=== PATIENT | female | born 1955 | race Caucasian/White ===

== ENCOUNTER → 2017-03-24 | Outpatient (CLI) | payer OTHER ==
--- NOTE | 2017-03-24 10:57 | RADRPT ---
PROCEDURE: XR Pelvis and right Hip. CLINICAL INDICATION: Pain TECHNIQUE: AP view of the pelvis and frog-leg lateral view of the right hip are available for revi ew. COMPARISON: 04/06/2010 FINDINGS: Left hip total arthroplasty is in place unchanged. The right hip demonstrates mild osteoarthritic na rrowing without evidence of acute fracture, dislocation osteolytic lesion.. There is no evidence of hardware failure.. No radiopaque foreign body is identified. The osseous mineralization is normal. The sacroiliac joints, as visualized, are grossly unremarkable. Pubic symphysis and sacroiliac join ts are intact. . IMPRESSION: Status post left hip arthroplasty. Mild osteoarthritis of the right hip. RPTAT: QQ .Georges Elmore MD, MD Date Time Electronically viewed and signed by .Georges Elmore MD, on 03/24/2017 10:57 .L/
--- NOTE | 2017-03-25 02:58 | HKNOTE ---
DATE OF SERVICE: 03/24/2017 MAIN COMPLAINT: Pain in the "right hip and back." HISTORY OF MAIN COMPLAINT: The patient is a 62-year-old female who is well known to me. She underw ent a left hip replacement performed by me in 2009. The surgery was uneventful, and she made an exc ellent recovery. The left hip has been free of symptoms since that time. She is currently seeing me for pain in the right hip. The patient states that she and her w ent on a road trip to [facility] the last 2 weeks of January. She is not sure why but since that time she has had pain in her right hip. There is no history of injury on the trip, and she di d not do particularly heavy lifting. She is under the care of Dr. Quinn, a pain specialist in [place], who gives her various nerve block s and has given her prescriptions for Percocet and gabapentin. She is concerned that she may be bec oming addicted to the Percocet. The patient was seen by Dr. Quinn who ordered an MRI [facility]. She decided to come and see me of her own volition for another opinion. The pain is described as being moderate. The pain is worse in the morning. It seems to ease up whe n she is able to "go for a walk." She does not have any rest pain. She has had to increase the dos e of her pain medications. The patient has had multiple lumbar epidural cortisone injections and radiofrequency ablations. She has no numbness or tingling in her legs. On a level surface, she can walk 2 miles at a time withou t stopping. She does not use a walking aid. She limps most of the time. She feels "a clicking sensation" in her right hip almost with every step. She gets occasional achin g down the posterior aspect of the right thigh, never reaching as far as the knee. (Note that her l ast lumbar MRI scan was "several years ago"). PAST MEDICAL HISTORY: Skin cancers. PAST SURGICAL HISTORY: 1. Tonsillectomy. 2. Tubal ligation. 3. Hysterectomy. 4. Hip replacement. MEDICATIONS: 1. Lipitor. 2. Percocet. 3. Omeprazole. 4. Gabapentin. 5. Diclofenac. 6. Multivitamins. 7. Move Free. ALLERGIES: CODEINE CAUSES NAUSEA. FAMILY HISTORY: Noncontributory. SYSTEMS REVIEW: Not completed by the patient. PHYSICAL EXAMINATION GENERAL: The patient is a fit-looking but overweight 62-year-old female. VITAL SIGNS: Height 5 feet 4 inches, weight 190 pounds. Blood pressure 125/70, temperature 98.8. GAIT: The patient's gait is somewhat antalgic. She walks without a walking aid. BACK: Dynamic pain assessment reveals a pain free range of motion in flexion, lateral bending, and rotation. Extension reproduces pain in the lower back and bilateral buttocks. Inspection of the sp ine reveals no list. There is no lumbar paraspinal muscle spasm. The pelvis is level. Facet stress t est is negative bilaterally. Palpation of the spine demonstrates no tenderness of the spinous proces ses, facet joints, sacroiliac joint, sciatic notch, or posterior thigh. NEUROLOGIC: Motor examination reveals no muscle deficit in the lower extremities. Deep tendon refle xes in the lower extremities: Right knee jerk plus, left knee jerk plus, right ankle jerk plus, lef t ankle jerk plus. Straight leg raising is negative bilaterally at 80 degrees. Lasegue and AYSE te sts are negative. RIGHT HIP: A full passive range of motion without pain. Severe tenderness over the right trochante lilly bursa. LEFT KNEE: The left knee shows normal alignment. Active and passive extension is 0 degrees. Active and passive flexion is 135 degrees. The medial and lateral collateral ligaments and cruciate ligamen ts are intact. Rob test is negative. There is no effusion, tenderness, scarring, crepitus, or cy sts. The patella tracks normally. There is no tenderness on the articular surface of the patella or in the patellar groove. The Q angle is normal. RIGHT KNEE: The right knee shows normal alignment. Active and passive extension is 0 degrees. Activ e and passive flexion is 135 degrees. The medial and lateral collateral ligaments and cruciate ligam ents are intact. Rob test is negative. There is no effusion, tenderness, scarring, crepitus, or cysts. The patella tracks normally. There is no tenderness on the articular surface of the patella o r in the patellar groove. The Q angle is normal. IMAGING: Plain x-rays of the pelvis and right and left hip obtained today at the [facility] and [facility] were reviewed. The left hip shows a hip replacement. All components are well aligned a nd well attached to the bone, not the slightest suggestion of loosening or any other problem. MRI scan of the right hip obtained on 02/18/[address] Braden as showing "high-grade p artial-thickness tearing of the gluteal tendon at its attachment upon the greater tuberosity g luteal tendonitis. degenerative tearing of much of the right hip labrum. No significant oste oarthritis. No avascular necrosis. DIAGNOSES: 1. Trochanteric bursitis of the right hip. 2. Possible lumbar radiculopathy. MANAGEMENT: 1. Under sterile conditions, I gave injection of 2 mL of Kenalog and Xylocaine into the right troch anteric bursa. 2. She is being referred for a new MRI scan of the lumbar spine. She will be called with the resul ts of the scan. Further treatment will depend heavily upon her response to the cortisone injection as well as to the findings on the MRI. Dictated By: GURJIT HAYWARD/DAMIAN Conf#: [id number] DID#: [id number]
== END | disposition home or self-care (01) ==
LOC: HKI 10:39
DX: M70.61 Trochanteric bursitis, right hip (principal); M54.5 Low back pain; Z96.642 Presence of left artificial hip joint; Z90.710 Acquired absence of both cervix and uterus
CPT/HCPCS: 20610; 73502; G0463

== ENCOUNTER 2018-08-29 05:21 | Inpatient (IN) | payer OTHER ==
[2018-08-25 10:29] VITALS: Ht 162.6 cm; Wt 72.0 kg
[~2018-08-29] VITALS: Ht 162.6 cm; Wt 72.0 kg
[2018-08-29] VITALS (25 sets, daily range): BP systolic 112–138; BP diastolic 58–92; PULSE 66–108; RESP 14–31
[2018-08-29] MEDS ORDERED: SIMV80TA18 PO (05:44)
[2018-08-29] MEDS ORDERED: OXYC-279 PO (05:44)
[2018-08-29] MEDS ORDERED: GABA300C16 PO (05:46)
[2018-08-29] MEDS ORDERED: OMEP20CA16 PO (05:48)
[2018-08-29] MEDS ORDERED: GELATIN SIZE 100 SPONGE ONE (06:46)
[2018-08-29] MEDS ORDERED: BUPIVACAINE 0.5%/EPI (SDV) 30 ML INJ ONE (06:46)
[2018-08-29] MEDS ORDERED: CEFAZOLIN 1 GM INJ ONE ×2 (06:46→06:58)
[2018-08-29] MEDS ORDERED: SURGIFOAM POWDER 1 GM KIT ONE ×2 (06:46→09:33)
[2018-08-29] MEDS ORDERED: THROMBIN 5000 UNIT VIAL ONE ×2 (06:46→06:50)
--- NOTE | 2018-08-29 06:49 | PREAC ---
Date/Time of Note Date/Time of Note DATE: 08/29/18 TIME: 06:48 Anesthesia Eval and Record Evaluation Time Pre-Procedure Interview DATE: 08/29/18 TIME: 06:48 Age 63 Sex female NPO: 8 hrs Preoperative diagnosis L4 5 spinal stenosis Planned procedure decompression, instrumented fusion graft Past Medical History Past Medical History: Includes Cardio: Dyslipidemia Surgery & Anesthesia Issues Hx of PONV Meds Anticoagulation: No Beta Salvatore within 24 hr: No Reason Beta Salvatore not given: Pt. not on B-Salvatore Reported Medications Omeprazole* (Omeprazole*) 20 Mg Capsule.dr, 20 MG PO DAILY, #30 CAP 08/29/18 Gabapentin* (Gabapentin*) 300 Mg Capsule, 300 MG PO HS, #60 CAP 08/29/18 Simvastatin* (Simvastatin*) 80 Mg Tablet, 40 MG PO QHS, #30 TAB 08/29/18 Oxycodone HCl/Acetaminophen (Percocet 5-325 mg Tablet) 1 Each Tablet, 1 EACH PO Q4 PRN for PAIN, TAB 08/29/18 Current Medications Cefazolin Sodium/ Dextrose 50 ml @ 100 mls/hr PRE-OP ONCE IVPB ; Start 08/29/18 at 07:00; Stop 08/29/18 at 07:29 Lactated Ringer's 1,000 ml @ 0 mls/hr Q0M IV* Last administered on 08/29/18at 06:16; Admin Dose 30 MLS/HR; Start 08/29/18 at 07:00; Stop 08/29/18 at 16:00 Meds reviewed: Yes Allergies Coded Allergies: acetaminophen (Verified Adverse Reaction, Unknown, NAUSEA, 08/29/18) codeine (Verified Adverse Reaction, Unknown, NAUSEA, 08/29/18) hydrocodone (Verified Adverse Reaction, Unknown, NAUSEA, 08/29/18) Allergies Reviewed: Yes Labs/Studies Labs Reviewed: Reviewed by anesthesiologist test: N/A Studies: ECG (nl) Pre-procedure Exam Last vitals Vital Signs Date Temp Pulse Resp B/P (MAP) Pulse Ox O2 O2 Flow FiO2 Time Delivery Rate 08/29/18 98.5 66 18 123/74 98 Room Air 06:17 (90) Airway: Adequate mouth opening Mallampati: Mallampati I Teeth: Normal Lung: Normal Heart: Normal ASA Physical Status ASA physical status: 2 Emergency: None Planned Anesthetic General/MAC: ETT Planned Pain Management Parenteral pain med Pre-operative Attestations Prior to commencing anesthesia and surgery, the patient was re-evaluated, there was verification of: *The patient's identity *The results of appropriate recent lab work and preoperative vital signs *The above evaluation not changing prior to induction *Anesthetic plan, risk benefits, alternative and complications discussed with patient/family; questions answered; patient/family understands, accepts and wishes to proceed. ROGERS NUNEZ MD Aug 29, 2018 06:49
[2018-08-29] MEDS ORDERED: CA CHLORIDE (GM) 10% 10 ML INJ ONE (06:51)
[2018-08-29] MEDS ORDERED: HEPARIN 1000 UNITS/ML 10 ML INJ ONE ×2 (06:51→06:57)
[2018-08-29] MEDS ORDERED: METOCLOPRAMIDE 10 MG INJ ONE (06:58)
[2018-08-29] MEDS ORDERED: ONDANSETRON 4 MG INJ ONE (06:58)
[2018-08-29] MEDS ORDERED: SUCCINYLCHOLINE CHLORIDE 100 MG/5 ML SYG IV ONE (06:58)
[2018-08-29] MEDS ORDERED: PROPOFOL 20 ML ONE (06:58)
[2018-08-29] MEDS ORDERED: MIDAZOLAM 1 MG/ML 2 ML INJ ONE (06:58)
[2018-08-29] MEDS ORDERED: ROCURONIUM 50 MG INJ ONE ×2 (06:58→07:00)
[2018-08-29] MEDS ORDERED: PROPOFOL 200 MG INJ ONE (07:00)
[2018-08-29] MEDS ORDERED: LACTATED RINGER'S 1,000 ML IV* SCH (07:00)
[2018-08-29] MEDS ORDERED: CEFAZOLIN 2 GM/50 ML (PMX) 50 ML IVPB ONE (07:00)
[2018-08-29] MEDS ORDERED: EPHEDrine SULFATE 50 MG/5 ML SYG ONE (07:00)
--- NOTE | 2018-08-29 07:02 | HPN ---
Date/Time of Note Date/Time of Note DATE: 08/29/18 TIME: 07:02 Interval H&P Admission Note Pt. seen H&P reviewed: No system changes ALAN GUZMÁN MD Aug 29, 2018 07:02
[2018-08-29] MEDS ORDERED: HYDROmorphONE 2 MG/ML SYG ONE (07:19)
[2018-08-29] MEDS ORDERED: LABETALOL HCL 20MG INJ IV PRN (07:30)
[2018-08-29] MEDS ORDERED: DIPHENHYDRAMINE 50 MG INJ IV PRN ×2 (07:30→11:00)
[2018-08-29] MEDS ORDERED: ONDANSETRON 4 MG INJ IV PRN ×2 (07:30→11:00)
[2018-08-29] MEDS ORDERED: MEPERIDINE 25 MG INJ IV PRN (07:30)
[2018-08-29] MEDS ORDERED: hydrALAzine 20 MG INJ IV PRN (07:30)
[2018-08-29] MEDS ORDERED: HYDROmorphONE 1 MG/5 ML IV SYRINGE IV PRN ×3 (07:30)
[2018-08-29] MEDS ORDERED: HYDROmorphONE 0.5 MG/0.5 ML SYG IV PRN (09:00)
[2018-08-29] MEDS ORDERED: NALOXONE (0.4 MG/ML) INJ IV PRN (11:00)
[2018-08-29] MEDS ORDERED: CEPASTAT LOZENGE MT PRN (11:00)
[2018-08-29] MEDS ORDERED: BISACODYL 10 MG SUPP PR PRN (11:00)
[2018-08-29] MEDS: D5W-0.45 NACL + KCL 20 MEQ 1,000 ML IV SCH ×2 (11:00→20:08)
[2018-08-29] MEDS ORDERED: ACETAMINOPHEN 325 MG TAB PO PRN (11:00)
[2018-08-29] MEDS ORDERED: DIPHENHYDRAMINE 25 MG CAP PO PRN (11:00)
[2018-08-29] MEDS ORDERED: AL HYDROX/MG HYDROX/SIMETH 30 ML CUP PO PRN (11:00)
--- NOTE | 2018-08-29 11:17 | SIPON ---
Date/Time of Note Date/Time of Note DATE: 08/29/18 TIME: 11:16 Operative Report Preoperative Diagnosis L4-5 spondylolisthesis Postoperative Diagnosis L4-5 spondylolisthesis Operation/Procedure Performed L4-5 decompression and instrumented fusion Surgeon see signature line operator assistant i cementing Kylee Donohue Anesthesia: general Estimated blood loss: other Transfusion Required none Specimen L4-5 disc and bone Grafts/Implants Cage and screws Complications none ALAN GUZMÁN MD Aug 29, 2018 11:17
[2018-08-29] MEDS: HYDROmorphONE 0.2 MG/ML PCA IV SCH ×2 (12:06→18:32)
--- NOTE | 2018-08-29 12:09 | OPR ---
DATE OF OPERATION: 08/29/2018 PREOPERATIVE DIAGNOSES: L4-5 grade 1-2 unstable degenerative spondylolisthesis with stenosis, radiculopathy and neurogenic claudication and sagittal imbalance. POSTOPERATIVE DIAGNOSES: L4-5 grade 1-2 unstable degenerative spondylolisthesis with stenosis, radiculopathy and neurogenic claudication and sagittal imbalance. PROCEDURE: 1. Central decompressive laminectomy at L4-5 with decompression of L4 and L5 nerve roots for stenosis. 2. Tomas-Fishman bilateral osteotomy at L4-5. 3. Placement of intervertebral biomechanical device bilaterally at L4-5. 4. Posterolateral fusion at L4-5. 5. Pedicle screw placement at L4 and L5 bilaterally. 6. Use of allograft. 7. Use of autograft. 8. Intraoperative neuromonitoring. 9. Use of operative microscope. 10. Use of C-arm fluoroscopy with interpretation without radiologist present. SHEET PILE HAMMER OPERATOR: MARIA GUADALUPE Martin. NEED FOR MANAGER SKILLED: During this spinal surgical procedure, my anesthetic assistant was used to retract and protect the spinal nerves and dural sac. My anesthetic assistant also employed the suction catheters to evacuate blood from the surgical field to improve visualization of the neural structures. The anesthetic assistant was medically necessary to facilitate the completion of the surgery in a safe and expeditious manner. State of [place] regulations, as well as hospital bylaws, preclude the use of non-licensed health care personnel, such as operating room technicians, to perform these functions. IMPLANTS: 1. Neurostructure Palladian pedicle screws 6.5 x 40 mm, at L4 bilaterally, and 7.5 x 40 mm at L5 bilaterally. 2. NEXXT matrix 9 mm height by 10 x 30 mm titanium cage x2 at L4-L5. 3. Biosphere. FINDINGS: Neuromonitoring at the start of the case revealed left L4, L5, and right L5 amplitude down 40%. At the end of the case, nerve signals returned to normal. The patient had severe stenosis at L4-L5 with unstable degenerative spondylolisthesis. ESTIMATED BLOOD LOSS: 300 mL. DRAINS: One. SPECIMENS: Given the patient's cancer history, I sent local bone for specimen as well as L4-5 disk. COMPLICATIONS OF PROCEDURES: None. ANESTHESIOLOGIST: Mary Burgess MD TYPE OF ANESTHESIA: General. INDICATIONS FOR PROCEDURE: This is a 63-year-old female with lumbar radiculopathy, neurogenic claudication in the setting of an unstable spondylolisthesis at L4-L5. She failed nonoperative measures; therefore, I recommended that she undergo the above procedure. Preoperatively, we discussed risks, benefits, alternatives. She understood and wished to proceed. DESCRIPTION OF PROCEDURE IN DETAIL: The patient was identified in the preoperative holding area, given Ancef antibiotic, taken to the operating room, where she was successfully placed under general anesthesia. Remote intraoperative neuromonitoring performed by Dr. Stephens to include SSEP, MEP, and EMG performed by [place] from 6:22 to 11:15. Patient was placed on the operating table in prone position over a Mesfin frame. All bony prominences well padded. The back was then prepped and draped in usual fashion. I injected Marcaine and epinephrine. Incision was then made over the L4-5 level. Incision was taken down to dorsal fascia, which was incised with Bovie cautery. I then subperiosteally dissected the L4 and L5 lamina bilaterally out to the transverse processes. I confirmed the levels with the C-arm fluoroscope. I next placed bilateral pedicle screws at L4 and L5. Once the screws were in place, I took imaging studies to confirm the placement. I stimulated each of the screws and there was no evidence of cortical breach. Next, I performed a central decompressive laminectomy. This was done in order to alleviate the stenosis and beyond was required in order to perform an interbody fusion. Central decompressive laminectomy was performed. I decompressed the L4 and L5 nerve roots bilaterally. I then performed Tomas-Luis osteotomies bilaterally with removal of the entire pars and facet in order to mobilize the L4-5 level to allow reduction and increased lordosis to correct the deformity. Once this was done, I performed annulotomies bilaterally, followed by radical diskectomies. I placed various trials and chose the appropriate graft height. I then took the titanium cage within which I placed allograft and I impacted the intervertebral mechanical device on the left and on the right at L4-L5 to complete the interbody fusion. I then took local autograft and allograft and placed this in the disk space. I then let down the Mesfin frame. I placed the appropriate size rods bilaterally and compressed across the pedicle screws and placed set screws with final tightening per manufacture specifications. I then irrigated the wound. Valsalva was performed and there was no leak of CSF. Hemostasis was achieved. Microscope was taken off the field. I prepared the posterolateral gutters and performed a posterolateral fusion with autograft and allograft. At this time I took final imaging studies and was happy with the placement the hardware, and lamina of the spine. I then placed a deep subfascial drain and closed the deep fascia with #1 Stratafix suture. I closed subcutaneous tissue with a 2-0 Vicryl stitch. A 4-0 Monocryl closure was then performed. Dermabond and sterile dressing was then applied. The patient was then awakened from anesthesia and taken to the recovery room in stable condition. Lap, sponge, and instrument correct x2. There were no apparent complications during the procedure. The patient was admitted to the [facility] for routine postoperative care to include pain control, neurovascular checks, antibiotics, and physical therapy. Dictated By: ALAN JIMENEZ/DAMIAN Conf#: [id number] DID#: [id number] CC: ALAN GUZMÁN MD;*EndCC* MTDD
[2018-08-29] MEDS: CEFAZOLIN 1 GM/50 ML (PMX) 50 ML IVPB SCH ×2 (12:15→20:08)
[2018-08-29] MEDS ORDERED: FENTAnyl 50 MCG/ML VIAL ONE (12:23)
[2018-08-29] MEDS ORDERED: FENTAnyl 50 MCG/ML VIAL IV ONE (12:30)
--- NOTE | 2018-08-29 12:44 | PAC ---
Date/Time of Note Date/Time of Note DATE: 08/29/18 TIME: 12:43 Post-Anesthesia Notes Post-Anesthesia Note Last documented vital signs Vital Signs Date Temp Pulse Resp B/P (MAP) Pulse Ox O2 O2 Flow FiO2 Time Delivery Rate 08/29/18 98.5 92 31 112/81 100 Room Air 12:29 (91) 08/29/18 98.5 11:49 Activity: WNL Respiratory function: WNL Cardiovascular function: WNL Mental status: Baseline Pain reasonably controlled: Yes Hydration appropriate: Yes Nausea/Vomiting absent: No ROGERS NUNEZ MD Aug 29, 2018 12:44
--- NOTE | 2018-08-29 12:48 | CONS ---
Assessment/Plan Assessment/Plan Assessment/Plan (Daily) Medical post op consult dict 1-Post op lumbar back surg, stable 2-Hx hyperlipidemia with hx dm or cad Consultation Date/Type/Reason Admit Date/Time Aug 29, 2018 at 05:21 Date/Time of Note DATE: 08/29/18 TIME: 12:47 Past Medical History Home Meds Reported Medications Omeprazole* (Omeprazole*) 20 Mg Capsule.dr, 20 MG PO DAILY, #30 CAP 08/29/18 Gabapentin* (Gabapentin*) 300 Mg Capsule, 300 MG PO HS, #60 CAP 08/29/18 Simvastatin* (Simvastatin*) 80 Mg Tablet, 40 MG PO QHS, #30 TAB 08/29/18 Oxycodone HCl/Acetaminophen (Percocet 5-325 mg Tablet) 1 Each Tablet, 1 EACH PO Q4 PRN for PAIN, TAB 08/29/18 Medications Current Medications Lactated Ringer's 1,000 ml @ 0 mls/hr Q0M IV* Last administered on 08/29/18at 06:16; Admin Dose 30 MLS/HR; Start 08/29/18 at 07:00; Stop 08/29/18 at 16:00 Potassium Chloride/Dextrose/ Sod Cl 1,000 ml @ 100 mls/hr Q10H IV ; Start 08/29/18 at 11:00 Oxycodone/ Acetaminophen (Endocet (10/ 325)) 2 tab ONCE@0930 PO ; Start 08/31/18 at 09:30; Stop 08/31/18 at 12:00 Oxycodone/ Acetaminophen (Endocet (10/ 325)) 2 tab Q4H PRN PO .PAIN 6-10; Start 08/31/18 at 10:00 Hydromorphone HCl (Dilaudid) 0.2 mg Q1H PRN IV .BREAKTHROUGH PAIN; Start 08/29/18 at 09:00 Cefazolin Sodium 50 ml @ 100 mls/hr Q8H IVPB Last administered on 08/29/18at 12:15; Admin Dose 100 MLS/HR; Start 08/29/18 at 12:00; Stop 08/30/18 at 04:29 Ondansetron HCl (Zofran Inj) 4 mg Q6H PRN IV NAUSEA/VOMITING; Start 08/29/18 at 11:00 Bisacodyl (Dulcolax Supp) 10 mg DAILY PRN ID .CONSTIPATION; Start 08/29/18 at 11:00 Docusate Sodium (Colace) 100 mg BID PO ; Start 08/29/18 at 21:00 Pantoprazole (Protonix Iv) 40 mg DAILY@06 IV ; Start 08/30/18 at 06:00 Al Hydrox/Mg Hydrox/Simethicone (Mag-Al Plus) 15 ml Q6H PRN PO .CONSTIPATION/DYSPEPSIA; Start 08/29/18 at 11:00 Acetaminophen (Tylenol Tab) 650 mg Q4H PRN PO GOLD OR TEMP GREATER THAN 101.3F; Start 08/29/18 at 11:00 Phenol (Cepastat Lozenge) 1 lozenge PRN PRN MT .SORE THROAT; Start 08/29/18 at 11:00 Diphenhydramine HCl (Benadryl) 25 mg Q6H PRN PO .ITCHING; Start 08/29/18 at 11:00 Diphenhydramine HCl (Benadryl) 25 mg Q6H PRN IV .ITCHING; Start 08/29/18 at 11:00 Naloxone HCl (Narcan) 0.2 mg Q2M PRN IV .RR 8 BREATHS/MIN OR LESS; Start 08/29/18 at 11:00 Hydromorphone HCl (Dilaudid DIALS INSPECTOR) DIALS INSPECTOR to be started in PACU Q4PCA IV Last administered on 08/29/18at 12:06; Admin Dose 6 MG; Start 08/29/18 at 09:00; Status Future Hold Miscellaneous Information 1. Hold DIALS INSPECTOR at 1,000... DIALS INSPECTOR IV ; Start 08/29/18 at 07:30 Methocarbamol (Robaxin) 500 mg Q6H PRN PO spasm; Start 08/29/18 at 12:00 Gabapentin (Neurontin) 300 mg HS PO ; Start 08/29/18 at 21:00 Hydromorphone HCl (Dilaudid) 0.2 mg PACU PRN IV MILD PAIN 1-3; Start 08/29/18 at 07:30; Stop 08/29/18 at 15:00 Hydromorphone HCl (Dilaudid) 0.4 mg PACU PRN IV MOD PAIN 4-6 Last administered on 08/29/18at 12:12; Admin Dose 0.4 MG; Start 08/29/18 at 07:30; Stop 08/29/18 at 15:00 Hydromorphone HCl (Dilaudid) 0.6 mg PACU PRN IV SEVERE PAIN 7-10 Last administered on 08/29/18at 12:00; Admin Dose 0.6 MG; Start 08/29/18 at 07:30; Stop 08/29/18 at 15:00 Ondansetron HCl (Zofran Inj) 4 mg PACU ORDER PRN IV NAUSEA/VOMITING; Start 08/29/18 at 07:30; Stop 08/29/18 at 15:00 Labetalol HCl (Labetalol) 5 mg PACU ORDER PRN IV HIGH BLOOD PRESSURE; Start 08/29/18 at 07:30; Stop 08/29/18 at 15:00 Hydralazine HCl (Apresoline) 5 mg PACU ORDER PRN IV HIGH BLOOD PRESSURE; Start 08/29/18 at 07:30; Stop 08/29/18 at 15:00 Meperidine HCl (Demerol) 25 mg PACU ORDER PRN IV .RIGORS; Start 08/29/18 at 07:30; Stop 08/29/18 at 15:00 Diphenhydramine HCl (Benadryl) 25 mg PACU ORDER PRN IV .PRURITUS; Start 08/29/18 at 07:30; Stop 08/29/18 at 15:00 Oxycodone/ Acetaminophen (Endocet (10/ 325)) 1 tab Q4H PRN PO .PAIN 5-10; Start 08/31/18 at 10:00 Allergies: Coded Allergies: acetaminophen (Verified Adverse Reaction, Unknown, NAUSEA, 08/29/18) codeine (Verified Adverse Reaction, Unknown, NAUSEA, 08/29/18) hydrocodone (Verified Adverse Reaction, Unknown, NAUSEA, 08/29/18) Social History Smoking Status: Never smoker Exam/Review of Systems Exam Vitals Vital Signs Date Temp Pulse Resp B/P (MAP) Pulse Ox O2 O2 Flow FiO2 Time Delivery Rate 08/29/18 90 16 130/76 99 Room Air 12:39 (94) 08/29/18 98.5 11:49 Medications Medication Current Medications Lactated Ringer's 1,000 ml @ 0 mls/hr Q0M IV* Last administered on 08/29/18at 06:16; Admin Dose 30 MLS/HR; Start 08/29/18 at 07:00; Stop 08/29/18 at 16:00 Potassium Chloride/Dextrose/ Sod Cl 1,000 ml @ 100 mls/hr Q10H IV ; Start 08/29/18 at 11:00 Oxycodone/ Acetaminophen (Endocet (10/ 325)) 2 tab ONCE@0930 PO ; Start 08/31/18 at 09:30; Stop 08/31/18 at 12:00 Oxycodone/ Acetaminophen (Endocet (10/ 325)) 2 tab Q4H PRN PO .PAIN 6-10; Start 08/31/18 at 10:00 Hydromorphone HCl (Dilaudid) 0.2 mg Q1H PRN IV .BREAKTHROUGH PAIN; Start 08/29/18 at 09:00 Cefazolin Sodium 50 ml @ 100 mls/hr Q8H IVPB Last administered on 08/29/18at 12:15; Admin Dose 100 MLS/HR; Start 08/29/18 at 12:00; Stop 08/30/18 at 04:29 Ondansetron HCl (Zofran Inj) 4 mg Q6H PRN IV NAUSEA/VOMITING; Start 08/29/18 at 11:00 Bisacodyl (Dulcolax Supp) 10 mg DAILY PRN ID .CONSTIPATION; Start 08/29/18 at 11:00 Docusate Sodium (Colace) 100 mg BID PO ; Start 08/29/18 at 21:00 Pantoprazole (Protonix Iv) 40 mg DAILY@06 IV ; Start 08/30/18 at 06:00 Al Hydrox/Mg Hydrox/Simethicone (Mag-Al Plus) 15 ml Q6H PRN PO .CONSTIPATION/DYSPEPSIA; Start 08/29/18 at 11:00 Acetaminophen (Tylenol Tab) 650 mg Q4H PRN PO GOLD OR TEMP GREATER THAN 101.3F; Start 08/29/18 at 11:00 Phenol (Cepastat Lozenge) 1 lozenge PRN PRN MT .SORE THROAT; Start 08/29/18 at 11:00 Diphenhydramine HCl (Benadryl) 25 mg Q6H PRN PO .ITCHING; Start 08/29/18 at 11:00 Diphenhydramine HCl (Benadryl) 25 mg Q6H PRN IV .ITCHING; Start 08/29/18 at 11:00 Naloxone HCl (Narcan) 0.2 mg Q2M PRN IV .RR 8 BREATHS/MIN OR LESS; Start 08/29/18 at 11:00 Hydromorphone HCl (Dilaudid DIALS INSPECTOR) DIALS INSPECTOR to be started in PACU Q4PCA IV Last administered on 08/29/18at 12:06; Admin Dose 6 MG; Start 08/29/18 at 09:00; Status Future Hold Miscellaneous Information 1. Hold DIALS INSPECTOR at 1,000... DIALS INSPECTOR IV ; Start 08/29/18 at 07:30 Methocarbamol (Robaxin) 500 mg Q6H PRN PO spasm; Start 08/29/18 at 12:00 Gabapentin (Neurontin) 300 mg HS PO ; Start 08/29/18 at 21:00 Hydromorphone HCl (Dilaudid) 0.2 mg PACU PRN IV MILD PAIN 1-3; Start 08/29/18 at 07:30; Stop 08/29/18 at 15:00 Hydromorphone HCl (Dilaudid) 0.4 mg PACU PRN IV MOD PAIN 4-6 Last administered on 08/29/18at 12:12; Admin Dose 0.4 MG; Start 08/29/18 at 07:30; Stop 08/29/18 at 15:00 Hydromorphone HCl (Dilaudid) 0.6 mg PACU PRN IV SEVERE PAIN 7-10 Last administered on 08/29/18at 12:00; Admin Dose 0.6 MG; Start 08/29/18 at 07:30; Stop 08/29/18 at 15:00 Ondansetron HCl (Zofran Inj) 4 mg PACU ORDER PRN IV NAUSEA/VOMITING; Start 08/29/18 at 07:30; Stop 08/29/18 at 15:00 Labetalol HCl (Labetalol) 5 mg PACU ORDER PRN IV HIGH BLOOD PRESSURE; Start 08/29/18 at 07:30; Stop 08/29/18 at 15:00 Hydralazine HCl (Apresoline) 5 mg PACU ORDER PRN IV HIGH BLOOD PRESSURE; Start 08/29/18 at 07:30; Stop 08/29/18 at 15:00 Meperidine HCl (Demerol) 25 mg PACU ORDER PRN IV .RIGORS; Start 08/29/18 at 07:30; Stop 08/29/18 at 15:00 Diphenhydramine HCl (Benadryl) 25 mg PACU ORDER PRN IV .PRURITUS; Start 08/29/18 at 07:30; Stop 08/29/18 at 15:00 Oxycodone/ Acetaminophen (Endocet (10/ 325)) 1 tab Q4H PRN PO .PAIN 5-10; Start 08/31/18 at 10:00 RACHELLE BEAL MD Aug 29, 2018 12:48
--- NOTE | 2018-08-29 13:23 | CONS ---
DATE OF ADMISSION: 08/29/2018 DATE OF CONSULTATION: 08/29/2018 Thank you very much for allowing me to evaluate the above patient, a 63-year-old female who just unde rwent lumbar back surgery. HISTORICAL EVENTS: As you well know, this patient has had chronic pain involving her back with radic ular leg pain. She did undergo a course of spinal injections as well as physical therapy to no avail . Because of her progressive pain, she elected to proceed with surgery today. PAST MEDICAL HISTORY: 1. Degenerative arthritis. 2. Hyperlipidemia 3. History of cervical cancer and melanoma. 4. No history of diabetes or coronary artery disease. 5. Left hip replacement. 6. Hysterectomy. MEDICATIONS: Prior to admission: 1. Percocet 7.5/325 as needed. 2. Diclofenac, presently not taking. 3. Gabapentin 300 mg at night. 4. Omeprazole 20 mg "preventative" given the need for nonsteroidals. 5. Lipitor 40. ALLERGIES: INCLUDE CODEINE and FLUOROQUINS. 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 She is . She d oes consume alcohol, does not smoke. PHYSICAL EXAMINATION: GENERAL: [place] female in no acute distress. VITAL SIGNS: BP 128/80, pulse 72, respirations were 18. She was afebrile. EYES: Extraocular muscles were full. NOSE, MOUTH, AND THROAT: Normal. NECK: Supple. There was no jugular venous distention, thyroid enlargement or adenopathy. Carotids 2+. LUNGS: Clear. HEART: Rhythm regular. No third or fourth sound. ABDOMEN: Nontender. Liver and spleen were not palpable. No mass or tenderness were noted. EXTREMITIES: No edema. Calves nontender. NEUROLOGIC: No lateralizing motor weakness. IMPRESSION: 1. Stable postop lumbar back surgery. 2. History of hyperlipidemia without coronary artery disease. Will continue statin. 3. No need to continue PPI. We will follow daily for signs and symptoms of thromboembolic disease. Dictated By: RACHELLE BEAL MD MR/NTS Conf#: [id number] DID#: [id number] CC: ALAN GUZMÁN MD;*EndCC*
[2018-08-29] MEDS: METHOCARBAMOL 500 MG TAB PO PRN ×2 (14:52→21:01)
[2018-08-29] MEDS: DOCUSATE SODIUM 100 MG CAP PO SCH (20:08)
[2018-08-29] MEDS: GABAPENTIN 300 MG CAP PO SCH ×2 (20:08→20:45)
[2018-08-29] MEDS: ATORVASTATIN 20 MG TAB PO SCH (20:08)
[2018-08-30 00:03] VITALS: BP 112/65; PULSE 107; RESP 19
[2018-08-30] MEDS: CEFAZOLIN 1 GM/50 ML (PMX) 50 ML IVPB SCH (04:26)
[2018-08-30] MEDS: HYDROmorphONE 0.2 MG/ML PCA IV SCH ×2 (05:41→19:40)
[2018-08-30] MEDS ORDERED: PANTOPRAZOLE 40 MG INJ IV SCH (06:00)
[2018-08-30 08:11] VITALS: BP 114/66; PULSE 88; RESP 18
[2018-08-30] MEDS: DOCUSATE SODIUM 100 MG CAP PO SCH ×2 (09:04→21:33)
[2018-08-30] MEDS: D5W-0.45 NACL + KCL 20 MEQ 1,000 ML IV SCH (09:08)
[2018-08-30] MEDS: METHOCARBAMOL 500 MG TAB PO PRN (09:08)
--- NOTE | 2018-08-30 09:54 | CONS ---
Assessment/Plan Assessment/Plan Assessment/Plan (Daily) 1. Stable post op lumbar laminectomy 2. Hyperlipidemia, statin continued 3. Lab rev Consultation Date/Type/Reason Admit Date/Time Aug 29, 2018 at 05:21 Initial Consult Date Date/Time of Note DATE: 08/30/18 TIME: 09:53 Detailed Summary Respiratory: No cough Cardiovascular: No chest pain Gastrointestinal: no complaints Genitourinary: other (darby is place) Musculoskeletal: back pain (mod without leg radic pain) Exam/Review of Systems Exam Vitals Vital Signs Date Temp Pulse Resp B/P (MAP) Pulse Ox O2 O2 Flow FiO2 Time Delivery Rate 08/30/18 98.4 88 18 114/66 98 Nasal 08:11 (82) Cannula 08/29/18 2.0 21:24 Intake and Output 08/29/18 08/29/18 08/30/18 1515:00 23:00 07:00 IntakeIntake Total 2125 ml 250 ml 1750 ml OutputOutput Total 510 ml 1600 ml BalanceBalance 1615 ml 250 ml 150 ml Neck: No jvd Respiratory: clear to auscultation Cardiovascular: regular rate and rhythm Gastrointestinal: soft Extremities: No edema, No tenderness Results Result Diagram: 08/30/18 0445 08/30/18 0445 Results 24hrs Laboratory Tests Test 08/30/18 04:45 08/30/18 07:09 White Blood Count 7.7 Red Blood Count 3.38 L Hemoglobin 11.0 L Hematocrit 33.7 L Mean Corpuscular Volume 99.7 Mean Corpuscular Hemoglobin 32.5 Mean Corpuscular Hemoglobin Concent 32.6 Red Cell Distribution Width 12.8 Platelet Count 156 Mean Platelet Volume 10.1 Immature Granulocytes % 0.400 Neutrophils % 84.7 H Lymphocytes % 5.8 L Monocytes % 6.7 Eosinophils % 2.3 Basophils % 0.1 Nucleated Red Blood Cells % 0.0 Immature Granulocytes # 0.030 Neutrophils # 6.5 Lymphocytes # 0.5 L Monocytes # 0.5 Eosinophils # 0.2 Basophils # 0.0 Nucleated Red Blood Cells # 0.0 Sodium Level 138 Potassium Level 4.1 Chloride Level 104 Carbon Dioxide Level 28 Anion Gap 6 Blood Urea Nitrogen 11 Creatinine 0.64 Est Glomerular Filtrat Rate mL/min > 60 Glucose Level 141 Calcium Level 8.8 Magnesium Level 1.9 Lab Scanned Report REFERENCE LAB Medications Medication Current Medications Potassium Chloride/Dextrose/ Sod Cl 1,000 ml @ 50 mls/hr Q20H IV Last administered on 08/30/18at 09:08; Admin Dose 100 MLS/HR; Start 08/29/18 at 11:00 Oxycodone/ Acetaminophen (Endocet (10/ 325)) 2 tab ONCE@0930 PO ; Start 08/31/18 at 09:30; Stop 08/31/18 at 12:00 Oxycodone/ Acetaminophen (Endocet (10/ 325)) 2 tab Q4H PRN PO .PAIN 6-10; Start 08/31/18 at 10:00 Hydromorphone HCl (Dilaudid) 0.2 mg Q1H PRN IV .BREAKTHROUGH PAIN; Start 08/29/18 at 09:00 Ondansetron HCl (Zofran Inj) 4 mg Q6H PRN IV NAUSEA/VOMITING; Start 08/29/18 at 11:00 Bisacodyl (Dulcolax Supp) 10 mg DAILY PRN [place] .CONSTIPATION; Start 08/29/18 at 11:00 Docusate Sodium (Colace) 100 mg BID PO Last administered on 08/30/18at 09:04; Admin Dose 100 MG; Start 08/29/18 at 21:00 Pantoprazole (Protonix Iv) 40 mg DAILY@06 IV Last administered on 08/30/18at 05:34; Admin Dose 40 MG; Start 08/30/18 at 06:00 Al Hydrox/Mg Hydrox/Simethicone (Mag-Al Plus) 15 ml Q6H PRN PO .CONSTIPATION/DYSPEPSIA; Start 08/29/18 at 11:00 Acetaminophen (Tylenol Tab) 650 mg Q4H PRN PO GOLD OR TEMP GREATER THAN 101.3F; Start 08/29/18 at 11:00 Phenol (Cepastat Lozenge) 1 lozenge PRN PRN [place] .SORE THROAT; Start 08/29/18 at 11:00 Diphenhydramine HCl (Benadryl) 25 mg Q6H PRN PO .ITCHING; Start 08/29/18 at 11:00 Diphenhydramine HCl (Benadryl) 25 mg Q6H PRN IV .ITCHING; Start 08/29/18 at 11:00 Naloxone HCl (Narcan) 0.2 mg Q2M PRN IV .RR 8 BREATHS/MIN OR LESS; Start 08/29/18 at 11:00 Hydromorphone HCl (Dilaudid YOUTH MINISTER) YOUTH MINISTER to be started in PACU Q4PCA IV Last administered on 08/30/18at 05:41; Admin Dose 6 MG; Start 08/29/18 at 09:00; Status Future Hold Miscellaneous Information 1. Hold YOUTH MINISTER at 1,000... YOUTH MINISTER IV ; Start 08/29/18 at 07:30 Methocarbamol (Robaxin) 500 mg Q6H PRN PO spasm Last administered on 08/30/18at 09:08; Admin Dose 500 MG; Start 08/29/18 at 12:00 Gabapentin (Neurontin) 300 mg HS PO Last administered on 08/29/18at 20:08; Admin Dose 300 MG; Start 08/29/18 at 21:00 Oxycodone/ Acetaminophen (Endocet (10/ 325)) 1 tab Q4H PRN PO .PAIN 5-10; Start 08/31/18 at 10:00 Atorvastatin Calcium (Lipitor) 20 mg DAILY@21 PO Last administered on 08/29/18at 20:08; Admin Dose 20 MG; Start 08/29/18 at 21:00 Gabapentin (Neurontin) 300 mg HS PO ; Start 08/29/18 at 21:00 RACHELLE BEAL MD Aug 30, 2018 09:54
--- NOTE | 2018-08-30 10:29 | PN ---
Date/Time of Note Date/Time of Note DATE: 08/30/18 TIME: 10:27 Assessment/Plan Lines/Catheters IV Catheter Type (from Nrsg): Peripheral IV Schaeffer in Place (from Nrsg): Yes Assessment/Plan Assessment/Plan POD #1 s/p TLIF L4-5 ambulate continue PT continue routine care and pain control Subjective 24 Hr Interval Summary c/o post-operative LBP Exam/Review of Systems Vital Signs Vitals Vital Signs Date Temp Pulse Resp B/P (MAP) Pulse Ox O2 O2 Flow FiO2 Time Delivery Rate 08/30/18 98.4 88 18 114/66 98 Nasal 08:11 (82) Cannula 08/29/18 2.0 21:24 Intake and Output 08/29/18 08/29/18 08/30/18 1515:00 23:00 07:00 IntakeIntake Total 2125 ml 250 ml 1750 ml OutputOutput Total 510 ml 1600 ml BalanceBalance 1615 ml 250 ml 150 ml Exam Free Text/Dictation AOx3 exam unchanged drain output 200cc Results Result Diagram: 08/30/18 0445 08/30/18 0445 ASHLEY BRO PA-C Aug 30, 2018 10:29
[2018-08-30 15:39] VITALS: BP 132/72; PULSE 101; RESP 20
[2018-08-30 20:05] VITALS: BP 132/70; PULSE 99; RESP 18
[2018-08-30] MEDS: GABAPENTIN 300 MG CAP PO SCH ×2 (21:00→21:32)
[2018-08-30] MEDS: ATORVASTATIN 20 MG TAB PO SCH (21:32)
[2018-08-31 02:00] VITALS: BP 136/74; PULSE 88; RESP 20
[2018-08-31] MEDS: D5W-0.45 NACL + KCL 20 MEQ 1,000 ML IV SCH ×2 (04:17→20:49)
[2018-08-31 07:19] VITALS: BP 114/62; PULSE 85; RESP 17
--- NOTE | 2018-08-31 07:58 | PN ---
Date/Time of Note Date/Time of Note DATE: 08/31/18 TIME: 07:57 Assessment/Plan Lines/Catheters IV Catheter Type (from Nrsg): Peripheral IV Schaeffer in Place (from Nrsg): Yes Assessment/Plan Assessment/Plan Postop day 2. Doing well. 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 Continue with physical therapy and discharge planning. Subjective 24 Hr Interval Summary Complains of less back pain Exam/Review of Systems Vital Signs Vitals Vital Signs Date Temp Pulse Resp B/P (MAP) Pulse Ox O2 O2 Flow FiO2 Time Delivery Rate 08/31/18 98.0 85 17 114/62 97 Room Air 07:19 (79) 08/30/18 2.0 20:10 Intake and Output 08/30/18 08/30/18 08/31/18 1515:00 23:00 07:00 IntakeIntake Total 1220 ml 650 ml 650 ml OutputOutput Total 2890 ml 20 ml BalanceBalance 1220 ml -2240 ml 630 ml Exam Free Text/Dictation Neuro intact Results Result Diagram: 08/31/18 0440 08/31/18 0440 ALAN GUZMÁN MD Aug 31, 2018 07:58
--- NOTE | 2018-08-31 08:06 | CONS ---
Assessment/Plan Assessment/Plan Assessment/Plan (Daily) 1. Doing well post op laminectomy, making good progress with pt 2. Hyperlipidemia, statin continued 3. Lab rev 4. Darby to be removed Consultation Date/Type/Reason Admit Date/Time Aug 29, 2018 at 05:21 Initial Consult Date Date/Time of Note DATE: 08/31/18 TIME: 08:04 Detailed Summary Respiratory: No shortness of breath Cardiovascular: No chest pain, No lightheadedness Gastrointestinal: no complaints Genitourinary: other (darby in place) Musculoskeletal: back pain (a bit less then yesterday without leg radic pain) Exam/Review of Systems Exam Vitals Vital Signs Date Temp Pulse Resp B/P (MAP) Pulse Ox O2 O2 Flow FiO2 Time Delivery Rate 08/31/18 98.0 85 17 114/62 97 Room Air 07:19 (79) 08/30/18 2.0 20:10 Intake and Output 08/30/18 08/30/18 08/31/18 1515:00 23:00 07:00 IntakeIntake Total 1220 ml 650 ml 650 ml OutputOutput Total 2890 ml 20 ml BalanceBalance 1220 ml -2240 ml 630 ml Neck: No jvd Respiratory: clear to auscultation Cardiovascular: regular rate and rhythm Gastrointestinal: soft Extremities: No edema Results Result Diagram: 08/31/180 08/31/18 0440 Results 24hrs Laboratory Tests Test 08/31/18 04:40 White Blood Count 7.3 Red Blood Count 3.27 L Hemoglobin 10.6 L Hematocrit 31.9 L Mean Corpuscular Volume 97.6 Mean Corpuscular Hemoglobin 32.4 Mean Corpuscular Hemoglobin Concent 33.2 Red Cell Distribution Width 12.3 Platelet Count 161 Mean Platelet Volume 10.3 Immature Granulocytes % 0.400 Neutrophils % 76.2 Lymphocytes % 10.8 L Monocytes % 9.5 Eosinophils % 3.0 Basophils % 0.1 Nucleated Red Blood Cells % 0.0 Immature Granulocytes # 0.030 Neutrophils # 5.6 Lymphocytes # 0.8 Monocytes # 0.7 Eosinophils # 0.2 Basophils # 0.0 Nucleated Red Blood Cells # 0.0 Sodium Level 138 Potassium Level 3.7 Chloride Level 102 Carbon Dioxide Level 27 Anion Gap 9 Blood Urea Nitrogen 7 Creatinine 0.46 Est Glomerular Filtrat Rate mL/min > 60 Glucose Level 126 Calcium Level 8.8 Magnesium Level 1.9 Medications Medication Current Medications Potassium Chloride/Dextrose/ Sod Cl 1,000 ml @ 50 mls/hr Q20H IV Last administered on 08/31/18at 04:17; Admin Dose 50 MLS/HR; Start 08/29/18 at 11:00 Oxycodone/ Acetaminophen (Endocet (10/ 325)) 2 tab ONCE@0930 PO ; Start 08/31/18 at 09:30; Stop 08/31/18 at 12:00 Oxycodone/ Acetaminophen (Endocet (10/ 325)) 2 tab Q4H PRN PO .PAIN 6-10; Start 08/31/18 at 10:00 Hydromorphone HCl (Dilaudid) 0.2 mg Q1H PRN IV .BREAKTHROUGH PAIN; Start 08/29/18 at 09:00 Ondansetron HCl (Zofran Inj) 4 mg Q6H PRN IV NAUSEA/VOMITING; Start 08/29/18 at 11:00 Bisacodyl (Dulcolax Supp) 10 mg DAILY PRN [place] .CONSTIPATION; Start 08/29/18 at 11:00 Docusate Sodium (Colace) 100 mg BID PO Last administered on 08/30/18at 21:33; Admin Dose 100 MG; Start 08/29/18 at 21:00 Al Hydrox/Mg Hydrox/Simethicone (Mag-Al Plus) 15 ml Q6H PRN PO .CONSTIPATION/DYSPEPSIA; Start 08/29/18 at 11:00 Acetaminophen (Tylenol Tab) 650 mg Q4H PRN PO GOLD OR TEMP GREATER THAN 101.3F; Start 08/29/18 at 11:00 Phenol (Cepastat Lozenge) 1 lozenge PRN PRN [place] .SORE THROAT; Start 08/29/18 at 11:00 Diphenhydramine HCl (Benadryl) 25 mg Q6H PRN PO .ITCHING; Start 08/29/18 at 11:00 Diphenhydramine HCl (Benadryl) 25 mg Q6H PRN IV .ITCHING; Start 08/29/18 at 11:00 Naloxone HCl (Narcan) 0.2 mg Q2M PRN IV .RR 8 BREATHS/MIN OR LESS; Start 08/29/18 at 11:00 Hydromorphone HCl (Dilaudid SENIOR TALENT MANAGEMENT CONSULTANT) SENIOR TALENT MANAGEMENT CONSULTANT to be started in PACU Q4PCA IV Last administered on 08/30/18at 19:40; Admin Dose 6 MG; Start 08/29/18 at 09:00; Status Future Hold Miscellaneous Information 1. Hold SENIOR TALENT MANAGEMENT CONSULTANT at 1,000... SENIOR TALENT MANAGEMENT CONSULTANT IV ; Start 08/29/18 at 07:30 Methocarbamol (Robaxin) 500 mg Q6H PRN PO spasm Last administered on 08/30/18at 09:08; Admin Dose 500 MG; Start 08/29/18 at 12:00 Gabapentin (Neurontin) 300 mg HS PO Last administered on 08/30/18at 21:32; Admin Dose 300 MG; Start 08/29/18 at 21:00 Oxycodone/ Acetaminophen (Endocet (10/ 325)) 1 tab Q4H PRN PO .PAIN 5-10; Start 08/31/18 at 10:00 Atorvastatin Calcium (Lipitor) 20 mg DAILY@21 PO Last administered on 08/30/18at 21:32; Admin Dose 20 MG; Start 08/29/18 at 21:00 Gabapentin (Neurontin) 300 mg HS PO ; Start 08/29/18 at 21:00 Famotidine (Pepcid) 20 mg BID PO ; Start 08/31/18 at 09:00 RACHELLE BEAL MD Aug 31, 2018 08:06
[2018-08-31] MEDS ORDERED: OXYCODONE/ACETAMINOPHEN (10/325) TAB PO PRN (08:36)
[2018-08-31] MEDS: DOCUSATE SODIUM 100 MG CAP PO SCH ×2 (08:43→21:19)
[2018-08-31] MEDS: FAMOTIDINE 20 MG TAB PO SCH ×2 (08:43→21:19)
[2018-08-31] MEDS ORDERED: OXYCODONE/ACETAMINOPHEN (10/325) TAB PO SCH (09:30)
[2018-08-31] MEDS: METHOCARBAMOL 500 MG TAB PO PRN ×3 (10:43→22:09)
[2018-08-31] MEDS: OXYCODONE/ACETAMINOPHEN (10/325) TAB PO PRN ×3 (13:24→23:10)
[2018-08-31 14:25] VITALS: BP 116/66; PULSE 84; RESP 16
[2018-08-31] MEDS: GABAPENTIN 300 MG CAP PO SCH ×2 (21:00→21:19)
[2018-08-31] MEDS: ATORVASTATIN 20 MG TAB PO SCH (21:19)
[2018-09-01 02:00] VITALS: BP 122/77; PULSE 80; RESP 18
[2018-09-01] MEDS: OXYCODONE/ACETAMINOPHEN (10/325) TAB PO PRN ×2 (03:30→07:33)
[2018-09-01] MEDS: METHOCARBAMOL 500 MG TAB PO PRN (04:53)
[2018-09-01 07:25] VITALS: BP 124/70; PULSE 83; RESP 18
--- NOTE | 2018-09-01 08:20 | CONS ---
Assessment/Plan Assessment/Plan Assessment/Plan (Daily) 1. Doing very well post lumbar back surgery, with less back pain 2. Hyperlipidemia 3. Can dc if ok with ortho and PT Consultation Date/Type/Reason Admit Date/Time Aug 29, 2018 at 05:21 Initial Consult Date Date/Time of Note DATE: 09/01/18 TIME: 08:17 Detailed Summary Respiratory: No cough, No shortness of breath Cardiovascular: No chest pain, No lightheadedness Gastrointestinal: no complaints, constipation Genitourinary: no complaints (but no bm) Musculoskeletal: back pain (is less) Exam/Review of Systems Exam Vitals Vital Signs Date Temp Pulse Resp B/P (MAP) Pulse Ox O2 O2 Flow FiO2 Time Delivery Rate 09/01/18 98.0 83 18 124/70 96 07:25 (88) 08/31/18 Room Air 14:25 08/31/18 2.0 08:09 Intake and Output 08/31/18 08/31/18 09/01/18 1515:00 23:00 07:00 IntakeIntake Total 240 ml 1200 ml 340 ml OutputOutput Total 1550 ml 900 ml BalanceBalance -1310 ml 300 ml 340 ml Neck: No jvd Respiratory: clear to auscultation Cardiovascular: regular rate and rhythm Gastrointestinal: soft Extremities: No edema, No tenderness Results Result Diagram: 09/01/1844409/01/18444 Results 24hrs Laboratory Tests Test 09/01/18 04:45 White Blood Count 7.3 Red Blood Count 3.20 L Hemoglobin 10.4 L Hematocrit 31.0 L Mean Corpuscular Volume 96.9 Mean Corpuscular Hemoglobin 32.5 Mean Corpuscular Hemoglobin Concent 33.5 Red Cell Distribution Width 12.3 Platelet Count 171 Mean Platelet Volume 10.4 Immature Granulocytes % 0.400 Neutrophils % 66.7 Lymphocytes % 16.1 Monocytes % 11.1 H Eosinophils % 5.3 Basophils % 0.4 Nucleated Red Blood Cells % 0.0 Immature Granulocytes # 0.030 Neutrophils # 4.9 Lymphocytes # 1.2 Monocytes # 0.8 Eosinophils # 0.4 Basophils # 0.0 Nucleated Red Blood Cells # 0.0 Sodium Level 140 Potassium Level 3.7 Chloride Level 102 Carbon Dioxide Level 29 Anion Gap 9 Blood Urea Nitrogen 8 Creatinine 0.58 Est Glomerular Filtrat Rate mL/min > 60 Glucose Level 101 Calcium Level 9.1 Magnesium Level 2.1 Medications Medication Current Medications Potassium Chloride/Dextrose/ Sod Cl 1,000 ml @ 50 mls/hr Q20H IV Last administered on 08/31/18at 04:17; Admin Dose 50 MLS/HR; Start 08/29/18 at 11:00 Oxycodone/ Acetaminophen (Endocet (10/ 325)) 2 tab Q4H PRN PO .PAIN 6-10 Last administered on 09/01/18at 07:33; Admin Dose 2 TAB; Start 08/31/18 at 08:36 Hydromorphone HCl (Dilaudid) 0.2 mg Q1H PRN IV .BREAKTHROUGH PAIN; Start 08/29/18 at 09:00 Ondansetron HCl (Zofran Inj) 4 mg Q6H PRN IV NAUSEA/VOMITING; Start 08/29/18 at 11:00 Bisacodyl (Dulcolax Supp) 10 mg DAILY PRN [place] .CONSTIPATION; Start 08/29/18 at 1 1:00 Docusate Sodium (Colace) 100 mg BID PO Last administered on 08/31/18at 21:19; Admin Dose 100 MG; Start 08/29/18 at 21:00 Al Hydrox/Mg Hydrox/Simethicone (Mag-Al Plus) 15 ml Q6H PRN PO .CONSTIPAT I[place]/DYSPEPSIA; Start 08/29/18 at 11:00 Acetaminophen (Tylenol Tab) 650 mg Q4H PRN PO GOLD OR TEMP GREATER THAN 101.3F; Start 08/29/18 at 11:00 Phenol (Cepastat Lozenge) 1 lozenge PRN PRN [place] .SORE THROAT; Start 08/29/18 at 11:00 Diphenhydramine HCl (Benadryl) 25 mg Q6H PRN PO .ITCHING; Start 08/29/18 at 11:00 Diphenhydramine HCl (Benadryl) 25 mg Q6H PRN IV .ITCHING; Start 08/29/18 at 11:00 Naloxone HCl (Narcan) 0.2 mg Q2M PRN IV .RR 8 BREATHS/MIN OR LESS; Start 08/29/18 at 11:00 Methocarbamol (Robaxin) 500 mg Q6H PRN PO spasm Last administered on 09/01/18at 04:53; Admin Dose 500 MG; Start 08/29/18 at 12:00 Gabapentin (Neurontin) 300 mg HS PO Last administered on 08/31/18 21:19; Admin Dose 300 MG; Start 08/29/18 at 21:00 Oxycodone/ Acetaminophen (Endocet (10/ 325)) 1 tab Q4H PRN PO .PAIN 5-10; Start 08/31/18 at 08:36 Atorvastatin Calcium (Lipitor) 20 mg DAILY@21 PO Last administered on 08/31/18at 21:19; Admin Dose 20 MG; Start 08/29/18 at 21:00 Gabapentin (Neurontin) 300 mg HS PO ; Start 08/29/18 at 21:00 Famotidine (Pepcid) 20 mg BID PO Last administered on 08/31/18at 21:19; Admin Dose 20 MG; Start 08/31/18 at 09:00 RACHELLE BEAL MD Sep 01, 2018 08:20
[2018-09-01] MEDS: FAMOTIDINE 20 MG TAB PO SCH (08:29)
[2018-09-01] MEDS: DOCUSATE SODIUM 100 MG CAP PO SCH (08:30)
--- NOTE | 2018-09-01 08:53 | DS ---
Date/Time of Note Date/Time of Note DATE: 09/01/18 TIME: 08:53 Discharge Summary Admission/Discharge Info Admit Date/Time Aug 29, 2018 at 05:21 Discharge Date/Time August 30 Discharge Diagnosis Lumbar fusion Patient Condition: Good Procedures Lumbar fusion Hospital Course Patient was admitted to the [facility] after undergoing a lumbar fusion. Her postoperative course was uncomplicated. By postoperative day 3 she was deemed stable for discharge with follow-up arranged with the undersigned Home Meds Reported Medications Omeprazole* (Omeprazole*) 20 Mg Capsule.dr, 20 MG PO DAILY, #30 CAP 08/29/18 Gabapentin* (Gabapentin*) 300 Mg Capsule, 300 MG PO HS, #60 CAP 08/29/18 Simvastatin* (Simvastatin*) 80 Mg Tablet, 40 MG PO QHS, #30 TAB 08/29/18 Oxycodone HCl/Acetaminophen (Percocet 5-325 mg Tablet) 1 Each Tablet, 1 EACH PO Q4 PRN for PAIN, TAB 08/29/18 Primary Care Provider Not On Staff Doctor Pending Labs Laboratory Tests Test 09/01/18 04:45 White Blood Count 7.3 10^3/ul (4.8-10.8) Red Blood Count 3.20 10^6/ul (4.20-5.40) Hemoglobin 10.4 g/dl (12.0-16.0) Hematocrit 31.0 % (37.0-47.0) Mean Corpuscular Volume 96.9 fl (82.0-101.0) Mean Corpuscular Hemoglobin 32.5 pg (29.0-33.0) Mean Corpuscular Hemoglobin Concent 33.5 g/dl (32.0-37.0) Red Cell Distribution Width 12.3 % (11.5-14.5) Platelet Count 171 10^3/UL (140-415) Mean Platelet Volume 10.4 fl (7.4-10.4) Immature Granulocytes % 0.400 % (0.001-0.429) Neutrophils % 66.7 % (39.0-77.0) Lymphocytes % 16.1 % (15.0-51.0) Monocytes % 11.1 % (0.0-11.0) Eosinophils % 5.3 % (0.0-7.0) Basophils % 0.4 % (0.0-2.0) Nucleated Red Blood Cells % 0.0 /100WBC (0.0-0.0) Immature Granulocytes # 0.030 10^3/ul (0.0-0.031) Neutrophils # 4.9 10^3/ul (1.6-7.5) Lymphocytes # 1.2 10^3/ul (0.8-2.9) Monocytes # 0.8 10^3/ul (0.3-0.9) Eosinophils # 0.4 10^3/ul (0.0-0.5) Basophils # 0.0 10^3/ul (0.0-0.1) Nucleated Red Blood Cells # 0.0 10^3/ul (0.0-0.0) Sodium Level 140 mmol/L (135-144) Potassium Level 3.7 mmol/L (3.5-5.1) Chloride Level 102 mmol/L (97-110) Carbon Dioxide Level 29 mmol/L (21-31) Anion Gap 9 (5-13) Blood Urea Nitrogen 8 mg/dl (7-20) Creatinine 0.58 mg/dl (0.44-1.00) Est Glomerular Filtrat Rate mL/min > 60 mL/min (>60) Glucose Level 101 mg/dl (70-220) Calcium Level 9.1 mg/dl (8.4-10.2) Magnesium Level 2.1 mg/dl (1.7-2.5) ALAN GUZMÁN MD Sep 01, 2018 08:53
== END 2018-09-01 11:40 | disposition home or self-care (01) | DRG 455 ==
LOC: REC 05:21 → EDSTATUS 07:00 → MS1 13:54
PROVIDERS: ADMIT Specialist; ATTEND Specialist
PROC: 0SG0071 Fusion of Lumbar Vertebral Joint with Autologous Tissue Substitute, Posterior Approach, Posterior Column, Open Approach (ICD-10-PCS; 2018-08-29)
PROC: 0ST20ZZ Resection of Lumbar Vertebral Disc, Open Approach (ICD-10-PCS; 2018-08-29)
PROC: 4A11X4G Monitoring of Peripheral Nervous Electrical Activity, Intraoperative, External Approach (ICD-10-PCS; 2018-08-29)
PROC: 0SG00AJ Fusion of Lumbar Vertebral Joint with Interbody Fusion Device, Posterior Approach, Anterior Column, Open Approach (ICD-10-PCS; principal; 2018-08-29 07:00)
DX: M43.16 Spondylolisthesis, lumbar region (principal); M48.062 Spinal stenosis, lumbar region with neurogenic claudication; E78.5 Hyperlipidemia, unspecified; M54.16 Radiculopathy, lumbar region
CPT/HCPCS: 72110; 80048; 83735; 85025; 86850; 86900; 86901; 86999; 87086; 88304; 88311; 97116; 97162; 97530; C9113; J0690; J1170; J1644; J2250; J2405; J2765; J3010; J3480